=== PATIENT | male | born 1985 | race Caucasian/White ===

== ENCOUNTER 2018-06-18 11:42 | Emergency (ER) | payer MEDICAID, OTHER ==
[~2018-06-18] VITALS: Ht 188 cm; Wt 104.3 kg
--- NOTE | 2018-06-18 11:55 | NUR ---
PT BIB PA. COMP OF HAVING 'ALCOHOL WITHDRAWL" SHAKING NOTED. AOX4. AMBULATORY W.STEADY GAIT. NO SOB NOTED. NO ACUTE DISTRESS AT THIS TIME. AWAITING MD YEE.
--- NOTE | 2018-06-18 12:00 | NUR ---
AT BEDSIDE. LABS DRAWN.
--- NOTE | 2018-06-18 12:05 | NUR ---
PT UNABLE TO URINATE AT THIS TIME. WILL TRY AGAIN IN A FEW MINUTES.
[2018-06-18] MEDS ORDERED: LORAZEPAM INJ 2 MG/ML VIAL ONE ×2 (12:08→13:23)
[2018-06-18] MEDS ORDERED: ONDANSETRON HCL/PF 4 MG/2 ML VIAL ONE (12:08)
[2018-06-18] MEDS ORDERED: ONDANSETRON 4 MG TAB.RAPDIS ONE (12:10)
[2018-06-18 12:12] LABS: BASOPHILS # (AUTO) 0.1 /CMM (0.0-0.2); BASOPHILS % (AUTO) 1.4 % (0.0-2.0); EOSINOPHILS % (AUTO) 0.5 % (0.0-6.0); HEMATOCRIT 43 % (39-51); HEMOGLOBIN 14.9 g/dL (13.5-17.5); LYMPHOCYTES # (AUTO) 0.7 /CMM (0.8-4.8); LYMPHOCYTES % (AUTO) 16.1 % (20.0-44.0); MEAN CORPUSCULAR HGB CONC 35 g/dl (31.0-36.0); MEAN CORPUSCULAR VOLUME 94 fL (80-96); MONOCYTES # (AUTO) 0.5 /CMM (0.1-1.30); MONOCYTES % (AUTO) 9.9 % (2.0-12.0); NEUTROPHILS # (AUTO) 3.4 /CMM (1.8-8.9); NEUTROPHILS % (AUTO) 72.1 % (43.0-81.0); PLATELET COUNT (AUTO) 141 /CMM (150-450); RED BLOOD CELL COUNT(AUTO) 4.51 MIL/uL (4.5-6.0); WHITE BLOOD COUNT (AUTO) 4.7 K/uL (4.3-11.0)
[2018-06-18] MEDS: IV NS 0.9% 1,000 ML BAG IV ONE ×2 (12:27→13:27)
[2018-06-18] MEDS: LORAZEPAM INJ 2 MG/ML VIAL IVP ONE (12:27)
[2018-06-18] MEDS: ONDANSETRON 4 MG TAB.RAPDIS PO ONE (12:27)
[2018-06-18 12:28] LABS: ALANINE AMINOTRANSFERASE 152 U/L (12-78); ALBUMIN 3.7 g/dL (3.4-5.0); ALCOHOL, BLOOD < 3 mg/dL (0-0); ALKALINE PHOSPHATASE 168 U/L (46-116); ASPARTATE AMINOTRANSFERASE 205 U/L (15-37); BILIRUBIN,DIRECT 0.8 mg/dL (0.0-0.2); BILIRUBIN,TOTAL 2.3 mg/dL (0.2-1.0); CALCIUM, SERUM 8.7 mg/dL (8.5-10.1); CARBON DIOXIDE 30 mmol/L (21-32); CHLORIDE 98 mmol/L (98-107); CREATININE 0.9 mg/dL (0.6-1.3); GLUCOSE 143 mg/dL (74-106); POTASSIUM 3.8 mmol/L (3.5-5.1); SODIUM SERUM 139 mmol/L (136-145); TOTAL PROTEIN, SERUM 7.7 g/dL (6.4-8.2); UREA NITROGEN, BLOOD 12 mg/dL (7-18)
[2018-06-18 12:30] LABS: ACETAMINOPHEN 0 ug/ml (10-30); SALICYLATE < 2.8 mg/dL (2.8-20.0)
[2018-06-18] MEDS: LORAZEPAM INJ 2 MG/ML VIAL IV ONE (13:27)
--- NOTE | 2018-06-18 13:30 | NUR ---
URINE COLLECTED AND SENT TO LAB.
[2018-06-18 13:49] LABS: APPEARANCE,URINE CLEAR (CLEAR); BILIRUBIN,URINE NEGATIVE (NEGATIVE); BLOOD, URINE NEGATIVE Ery/uL (NEGATIVE); COLOR,URINE ORANGE (YELLOW); KETONES,URINE NEGATIVE (NEGATIVE); LEUKOCYTE ESTERASE ,URINE NEGATIVE (NEGATIVE); NITRITE, URINE NEGATIVE (NEGATIVE); PH,URINE 7.5 (5.0-8.0); PROTEIN,URINE 1+ mg/dl (NEGATIVE); UGLUCOSE NEGATIVE (NEGATIVE)
[2018-06-18 14:00] LABS: BACTERIA,URINE None seen /HPF (None Seen); RBC,URINE 0-2 /HPF (0-2); SQUAMOUS EPITHELIAL CELL,UR 0-2 /HPF (None Seen); WBC,URINE 0-2 /HPF (0-3)
--- NOTE | 2018-06-18 14:28 | NUR ---
Removed peripheral IV. Patient discharged to home in stable condition. Written and verbal after care instructions given. Patient verbalizes understanding of instruction.
[2018-06-18 14:31] VITALS: BP 130/80
== END 2018-06-18 14:32 | disposition home or self-care (01) ==
LOC: ER 11:56
DX: F10.239 Alcohol dependence with withdrawal, unspecified (principal); I10 Essential (primary) hypertension; Z90.89 Acquired absence of other organs; Y90.0 Blood alcohol level of less than 20 mg/100 ml
CPT/HCPCS: 36415; 80048-TC; 80076-TC; 80305; 81000-TC; 85025-TC; A4606; G0480; J2060; J2405; J7030; Q0162; Z7610

== ENCOUNTER 2018-11-06 11:27 | Emergency (ER) | payer MEDICAID, OTHER ==
[~2018-11-06] VITALS: Ht 188 cm; Wt 106.6 kg
[2018-11-06 11:35] VITALS: BP 137/86
--- NOTE | 2018-11-06 12:25 | NUR ---
Patient discharged to home in stable condition. Written and verbal after care instructions given. Patient verbalizes understanding of instruction.
== END 2018-11-06 12:24 | disposition home or self-care (01) ==
LOC: ER 11:29
DX: S93.692A Other sprain of left foot, initial encounter (principal); I10 Essential (primary) hypertension; F10.10 Alcohol abuse, uncomplicated; Y90.9 Presence of alcohol in blood, level not specified; Z90.89 Acquired absence of other organs; Z60.2 Problems related to living alone; X58.XXXA Exposure to other specified factors, initial encounter; Y93.89 Activity, other specified; Y92.89 Other specified places as the place of occurrence of the external cause; Y99.0 Civilian activity done for income or pay

== ENCOUNTER 2018-11-22 12:40 | Emergency (ER) | payer MEDICAID, OTHER ==
[~2018-11-22] VITALS: Ht 180.3 cm; Wt 113.4 kg
[2018-11-22] MEDS ORDERED: LORAZEPAM INJ 2 MG/ML VIAL IV ONE (13:30)
[2018-11-22] MEDS ORDERED: IV NS 0.9% 1,000 ML BAG IV ONE (13:30)
--- NOTE | 2018-11-22 13:30 | NUR ---
patient BIB family came to the ER c/o alcohol withdrawal. On room air, breathing evenly and unlabored. Connected to the monitor accordingly. Kept comfortable, will continue to monitor accordingly.
[2018-11-22] MEDS ORDERED: LORAZEPAM INJ 2 MG/ML VIAL ONE (13:31)
[2018-11-22 14:41] VITALS: BP 147/66
--- NOTE | 2018-11-22 14:42 | NUR ---
Patient discharged to home in stable condition. Written and verbal after care instructions given. Patient verbalizes understanding of instruction.IV removed. Catheter intact and site benign. Pressure and 4x4 applied to site. No bleeding noted.
== END 2018-11-22 14:42 | disposition home or self-care (01) ==
LOC: ER 12:41
DX: F10.239 Alcohol dependence with withdrawal, unspecified (principal); I10 Essential (primary) hypertension; Z90.89 Acquired absence of other organs; Z60.2 Problems related to living alone; Y90.9 Presence of alcohol in blood, level not specified
CPT/HCPCS: 96374; 99283; J2060; J7030

== ENCOUNTER 2021-11-28 17:44 | Emergency (ER) | payer OTHER ==
[~2021-11-28] VITALS: Ht 190.5 cm; Wt 104.3 kg
[2021-11-28 18:26] VITALS: BP 164/105
[2021-11-28] MEDS ORDERED: ONDANSETRON 4 MG TAB.RAPDIS PO ONE (19:00)
[2021-11-28] MEDS ORDERED: IBUPROFEN 400 MG TABLET PO ONE (19:00)
[2021-11-28] MEDS ORDERED: IBUPROFEN 400 MG TABLET ONE (19:44)
[2021-11-28] MEDS ORDERED: ONDANSETRON 4 MG TAB.RAPDIS ONE (19:44)
--- NOTE | 2021-11-28 20:12 | NUR ---
Patient discharged to home in stable condition. Written and verbal after care instructions given. Patient verbalizes understanding of instruction.
== END 2021-11-28 20:42 | disposition home or self-care (01) ==
LOC: ER 17:44
DX: S62.331A Displaced fracture of neck of second metacarpal bone, left hand, initial encounter for closed fracture (principal); I10 Essential (primary) hypertension; Z90.89 Acquired absence of other organs; Z60.2 Problems related to living alone; V49.9XXA Car occupant (driver) (passenger) injured in unspecified traffic accident, initial encounter; Y93.89 Activity, other specified; Y92.89 Other specified places as the place of occurrence of the external cause; Y99.8 Other external cause status
CPT/HCPCS: 29125; 70450; 70486; 73080; 73110; 73130; 99284; Q0162

== ENCOUNTER 2022-05-19 16:57 | Emergency (ER) | payer OTHER ==
[~2022-05-19] VITALS: Ht 188 cm; Wt 106.6 kg
[2022-05-19 17:04] VITALS: BP 172/97
--- NOTE | 2022-05-19 17:04 | NUR ---
KENZIE RA70 From Home "Alcoholic- Last drank this am. Seized today. Per medics Homeless/lives in car parked in front of ex GF". PLACED ON BED, AAOX4, BREATHING EVEN AND UNLABORED.
--- NOTE | 2022-05-19 17:10 | NUR ---
AT BEDSIDE FOR EVAL.
[2022-05-19] MEDS ORDERED: LORA-259 PO (17:18)
[2022-05-19] MEDS ORDERED: LORAZEPAM 1 MG TABLET ONE (17:22)
[2022-05-19] MEDS ORDERED: LORAZEPAM 1 MG TABLET PO ONE (17:30)
--- NOTE | 2022-05-19 18:23 | NUR ---
Patient discharged to home in stable condition. Written and verbal after care instructions given. Patient verbalizes understanding of instruction.
== END 2022-05-19 18:29 | disposition home or self-care (01) ==
LOC: ER 17:00
DX: F10.239 Alcohol dependence with withdrawal, unspecified (principal); I10 Essential (primary) hypertension; Z90.89 Acquired absence of other organs; Z60.2 Problems related to living alone; Z79.899 Other long term (current) drug therapy; Y90.9 Presence of alcohol in blood, level not specified